=== PATIENT | male | born 1960 | race Caucasian/White ===

== ENCOUNTER 2019-01-21 11:50 | Emergency (ER) | payer BC ==
[~2019-01-21] VITALS: Ht 177.8 cm; Wt 102.1 kg
[2019-01-21] MEDS ORDERED: VALS80 PO (13:06)
[2019-01-21] MEDS ORDERED: Synthroid88 MCG PO (13:06)
[2019-01-21] MEDS ORDERED: METO25ER PO (13:06)
[2019-01-21] MEDS ORDERED: INSULANPEN SC (13:07)
[2019-01-21] MEDS ORDERED: NOVOLOG FL100 UNIT/1 (13:07)
[2019-01-21] MEDS ORDERED: CHOLESTROL MED PO (13:08)
== END 2019-01-21 13:29 | disposition home or self-care (01) ==
LOC: ER 11:50
DX: S50.11XA Contusion of right forearm, initial encounter (principal); I25.2 Old myocardial infarction; Z79.899 Other long term (current) drug therapy; Z79.4 Long term (current) use of insulin; V86.59XA Driver of other special all-terrain or other off-road motor vehicle injured in nontraffic accident, initial encounter
CPT/HCPCS: 73090; 99283-25